=== PATIENT | male | born 1970 | race African-American/Black ===

== ENCOUNTER 2023-07-26 08:42 | Emergency (ER) | payer OTHER, SELFPAY ==
[~2023-07-26] VITALS: Ht 167.6 cm; Wt 70.5 kg
[~2023-07-26 08:42] MED LIST: NOCURR
[2023-07-26 08:48] VITALS: TEMP 98.6
[2023-07-26] MEDS: IBUPROFEN 600 MG TABLET PO ONE (10:00)
[2023-07-26] MEDS: METHOCARBAMOL 500 MG TABLET PO ONE (10:00)
[2023-07-26] MEDS ORDERED: METH-659 PO (11:00)
[2023-07-26] MEDS ORDERED: IBUP-1492 PO (11:00)
[2023-07-26 11:39] VITALS: BP 132/76; PULSE 68; RESP 18
== END 2023-07-26 11:39 | disposition home or self-care (01) ==
LOC: EMS 08:42
DX: S06.0X0A Concussion without loss of consciousness, initial encounter (principal); S16.1XXA Strain of muscle, fascia and tendon at neck level, initial encounter; F12.90 Cannabis use, unspecified, uncomplicated; F17.210 Nicotine dependence, cigarettes, uncomplicated; Z88.0 Allergy status to penicillin; V89.2XXA Person injured in unspecified motor-vehicle accident, traffic, initial encounter; Y93.89 Activity, other specified; Y92.89 Other specified places as the place of occurrence of the external cause; Y99.8 Other external cause status
CPT/HCPCS: 99283